=== PATIENT | female | born 1995 | race Caucasian/White ===

== ENCOUNTER 2017-02-06 16:17 | Emergency (ER) | payer SELFPAY ==
--- NOTE | 2017-02-06 16:59 | ER Document Report ---
ED Medical Screen (RME) - General Chief Complaint: Abdominal Pain Stated Complaint: ABDOMINAL PAIN Time Seen by Provider: 02/06/17 16:56 Mode of Arrival: Ambulatory Information source: Patient, Parent TRAVEL OUTSIDE OF THE [place] IN LAST 30 DAYS: No - HPI Patient complains to provider of: abdominal pain Onset: Other - pt. with 2 month h/o abdominal pain and bloating with intermittent vomiting and diarrhea. - Related Data Allergies/Adverse Reactions: gluten Allergy (Verified 02/06/17 16:36) Past Medical History - Social History Chew tobacco use (# tins/day): No Frequency of alcohol use: Occasional Drug Abuse: None Neurological Medical History: Reports: Hx Migraine Endocrine Medical History: Reports: Hx Diabetes Mellitus Type 1 Renal/ Medical History: Denies: Hx Peritoneal Dialysis GI Medical History: Reports: Hx Ulcer Surgical Hx: Negative - Immunizations Hx Diphtheria, Pertussis, Tetanus Vaccination: Yes Physical Exam - Vital signs Vitals: Temp Pulse Resp BP Pulse Ox 98.5 F 81 14 144/102 H 100 02/06/17 16:36 02/06/17 16:36 02/06/17 16:36 02/06/17 16:36 02/06/17 16:36 Course - Vital Signs Vital signs: Temp Pulse Resp BP Pulse Ox 98.5 F 81 14 144/102 H 100 02/06/17 16:36 02/06/17 16:36 02/06/17 16:36 02/06/17 16:36 02/06/17 16:36
[2017-02-06 17:40] LABS: ABSOLUTE BASOPHILS # (AUTO) 0.1 10^3/uL (0.0-0.2); ABSOLUTE EOSINOPHILS # (AUTO) 0.2 10^3/uL (0.0-0.6); ABSOLUTE MONOCYTES (AUTO) 0.6 10^3/uL (0.1-1.4); ABSOLUTE NEUT (AUTO) 7.5 10^3/uL (1.7-8.2); BASOPHILS % (AUTO) 0.5 % (0-2); EOSINOPHILS % (AUTO) 2.4 % (0-6); HEMATOCRIT 46.1 % (36.0-47.0); HGB HCT DIFFERENCE -1.1; LYMPHOCYTES % (AUTO) 19.5 % (13-45); MEAN CORPUSCULAR HEMOGLOBIN 28.2 pg (27.0-33.4); MEAN CORPUSCULAR HGB CONC 32.6 g/dL (32.0-36.0); MEAN CORPUSCULAR VOLUME 87 fl (80-97); RED BLOOD COUNT 5.31 10^6/uL (3.72-5.28); RED CELL DISTRIBUTION WIDTH 12.8 % (11.5-14.0); SEGMENTED NEUTROPHILS % (AUTO) 71.6 % (42-78); WHITE BLOOD COUNT 10.4 10^3/uL (4.0-10.5)
[2017-02-06 17:52] LABS: APPEARANCE,URINE SLIGHTLY-CLOUDY; BILIRUBIN,URINE NEGATIVE (NEGATIVE); GLUCOSE, URINE >=500 mg/dL (NEGATIVE); KETONES,URINE NEGATIVE (NEGATIVE); LEUKOCYTE ESTERASE,URINE TRACE (NEGATIVE); NITRITE,URINE POSITIVE (NEGATIVE); PROTEIN,URINE NEGATIVE (NEGATIVE); URINE SPECIFIC GRAVITY 1.031; UROBILINOGEN,URINE NEGATIVE mg/dL (<2.0)
[2017-02-06 18:00] LABS: ALANINE AMINOTRANSFERASE 19 U/L (9-52); ALBUMIN 4.5 g/dL (3.5-5.0); ALKALINE PHOSPHATASE 70 U/L (38-126); ANION GAP 14 (5-19); ASPARTATE AMINO TRANSFERASE 20 U/L (14-36); BILIRUBIN,DIRECT 0.3 mg/dL (0.0-0.4); BILIRUBIN,TOTAL 0.7 mg/dL (0.2-1.3); BLOOD UREA NITROGEN 10 mg/dL (7-20); CALCIUM 9.3 mg/dL (8.4-10.2); CARBON DIOXIDE 23 mmol/L (22-30); CHLORIDE 98 mmol/L (98-107); CREATININE RESULT 0.69 mg/dL (0.52-1.25); LIPASE 107.6 U/L (23-300)
[2017-02-06 18:08] LABS: GLUCOSE 566 mg/dL (75-110)
[2017-02-06] MEDS ORDERED: INSULIN LISPRO 100 UNIT/ML 3 ML VIAL SUBCUT ONE (19:15)
[2017-02-06] MEDS ORDERED: NORMAL SALINE 1000 ML 1,000 ML IV ONE (19:18)
--- NOTE | 2017-02-06 19:19 | ER Document Report ---
ED General - General Chief Complaint: Abdominal Pain Stated Complaint: ABDOMINAL PAIN Time Seen by Provider: 02/06/17 16:56 Mode of Arrival: Ambulatory Notes: Patient is a 21-year-old female with a mixed type of diabetes both oral hypoglycemic and insulin control although admits that she almost never checks her blood sugar and is noncompliant with her medications due to lack of insurance who presents with 2 months of intermittent diffuse abdominal cramping. Denies any significant pain at time of my assessment. Nothing improves or worsens the pain. She has not seen a primary care doctor regarding this concern. She denies any associated vomiting or diarrhea. States that the pain is often worse around her menstrual cycle or when she is feeling depressed. TRAVEL OUTSIDE OF THE [place] IN LAST 30 DAYS: No - Related Data Allergies/Adverse Reactions: gluten Allergy (Verified 02/06/17 16:36) Past Medical History - General Information source: Patient, Parent - Social History Smoking Status: Current Every Day Smoker Chew tobacco use (# tins/day): No Frequency of alcohol use: Occasional Drug Abuse: None Lives with: Parents Family History: Reviewed & Not Pertinent Patient has suicidal ideation: No Patient has homicidal ideation: No Neurological Medical History: Reports: Hx Migraine Endocrine Medical History: Reports: Hx Diabetes Mellitus Type 1 Renal/ Medical History: Denies: Hx Peritoneal Dialysis GI Medical History: Reports: Hx Ulcer Surgical Hx: Negative - Immunizations Hx Diphtheria, Pertussis, Tetanus Vaccination: Yes Review of Systems - Review of Systems Notes: Constitutional: Negative for fever. HENT: Negative for sore throat. Eyes: Negative for visual changes. Cardiovascular: Negative for chest pain. Respiratory: Negative for shortness of breath. Gastrointestinal: Positive for abdominal pain Genitourinary: Negative for dysuria. Musculoskeletal: Negative for back pain. Skin: Negative for rash. Neurological: Negative for headaches, weakness or numbness. 10 point ROS negative except as marked above and in HPI. Physical Exam - Vital signs Vitals: Temp Pulse Resp BP Pulse Ox 98.5 F 81 14 144/102 H 100 02/06/17 16:36 02/06/17 16:36 02/06/17 16:36 02/06/17 16:36 02/06/17 16:36 Interpretation: Normal Notes: PHYSICAL EXAMINATION: GENERAL: Well-appearing, well-nourished and in no acute distress. HEAD: Atraumatic, normocephalic. EYES: Pupils equal round and reactive to light, extraocular movements intact, sclera anicteric, conjunctiva are normal. ENT: nares patent, oropharynx clear without exudates. Moist mucous membranes. NECK: Normal range of motion, supple without lymphadenopathy LUNGS: Breath sounds clear to auscultation bilaterally and equal. No wheezes rales or rhonchi. HEART: Regular rate and rhythm without murmurs ABDOMEN: Soft, nontender, normoactive bowel sounds. No guarding, no rebound. No masses appreciated. EXTREMITIES: Normal range of motion, no pitting or edema. No cyanosis. NEUROLOGICAL: No focal neurological deficits. Moves all extremities spontaneously and on command. PSYCH: Normal mood, normal affect. SKIN: Warm, Dry, normal turgor, no rashes or lesions noted. Course - Re-evaluation Re-evalutation: 02/06/17 19:17 Patient presents with 2 months of intermittent, chronic diffuse abdominal pain with no pain on exam at this time. Abdominal exam is benign without any focal tenderness. Vitals are normal at the time of arrival. Laboratories are unremarkable without evidence of cystitis, , or leukocytosis. Patient is overall very well in appearance. Based on clinical history and examination I do not suspect an acute appendicitis, tubo-ovarian abscess, related pathology, pelvic inflammatory disease, mesenteric ischemia, or pyelonephritis. Patient severe hypoglycemia does suggest a component of possible gastroparesis to the etiology of her intermittent abdominal pain especially given that her pain is often related to eating a large meal and is described as a sensation of diffuse bloating and nausea. I do not believe any imaging is indicated at this time given the absence of any focal abdominal tenderness or suspicion of an acute intra-abdominal pathology. Patient's hypoglycemia does not demonstrate any evidence of DKA or HHS. She is awake and talking, appropriate. The resource nurse will contact the patient on Thursday to assist with her getting insulin as an outpatient as she does struggle with this due to lack of insurance. Patient's blood sugar has been treated here in the emergency department with IV fluids and insulin. At this time will discharge with return precautions and follow-up recommendations. Verbal discharge instructions given a the bedside and opportunity for questions given. Medication warnings reviewed. Patient is in agreement with this plan and has verbalized understanding of return precautions and the need for primary care follow-up in the next 24-72 hours. - Vital Signs Vital signs: Temp Pulse Resp BP Pulse Ox 97.4 F 67 16 136/88 H 99 02/06/17 20:31 02/06/17 20:31 02/06/17 20:31 02/06/17 20:31 02/06/17 20:31 - Laboratory Result Diagrams: 02/06/17 17:20 02/06/17 17:20 Laboratory results interpreted by me: 02/06/17 02/06/17 02/06/17 17:02 17:20 17:20 RBC 5.31 H Sodium 135.0 L Glucose 566 H* POC Glucose Urine Glucose (UA) >=500 H Urine Blood LARGE H Urine Nitrite POSITIVE H Ur Leukocyte Esterase TRACE H 02/06/17 20:15 RBC Sodium Glucose POC Glucose 323 H Urine Glucose (UA) Urine Blood Urine Nitrite Ur Leukocyte Esterase Discharge - Discharge Clinical Impression: Hyperglycemia due to type 1 diabetes mellitus, Chronic abdominal pain Condition: Good Disposition: HOME, SELF-CARE Additional Instructions: You need to followup urgently with your primary care doctor as your blood sugars were dangerously high today. You did not have any evidence of a dangerous condition associated with these blood sugars at this time. However, it is very important that you get your blood sugars under control. Please take all of your medications exactly as directed. You should avoid foods that are high in carbohydrates and sugary foods. Please return to emergency department immediately if you develop weakness, persistent vomiting, confusion, or any other symptoms that are concerning to you. Referrals: GEORGE YODER DO [Primary Care Provider] - Follow up as needed
[2017-02-06 20:31] VITALS: BP 136/88
== END 2017-02-06 20:31 | disposition home or self-care (01) ==
LOC: ER 16:17
DX: E10.65 Type 1 diabetes mellitus with hyperglycemia (principal); G89.29 Other chronic pain; R10.9 Unspecified abdominal pain; F17.200 Nicotine dependence, unspecified, uncomplicated; Z79.4 Long term (current) use of insulin
CPT/HCPCS: 99284; 96360; 36415; 82962; 83690; 85025; 81025; 80053; 81001; J1815

== ENCOUNTER → 2017-02-23 | Outpatient (CLI) | payer OTHER ==
[2017-02-23 12:15] LABS: ABSOLUTE EOSINOPHILS # (AUTO) 0.2 10^3/uL (0.0-0.6); ABSOLUTE LYMPHOCYTES (AUTO) 1.5 10^3/uL (0.5-4.7); ABSOLUTE MONOCYTES (AUTO) 0.6 10^3/uL (0.1-1.4); ABSOLUTE NEUT (AUTO) 5.7 10^3/uL (1.7-8.2); BASOPHILS % (AUTO) 0.5 % (0-2); EOSINOPHILS % (AUTO) 2.7 % (0-6); HEMATOCRIT 39.2 % (36.0-47.0); HEMOGLOBIN 13.6 g/dL (12.0-15.5); HGB HCT DIFFERENCE 1.6; LYMPHOCYTES % (AUTO) 18.5 % (13-45); MEAN CORPUSCULAR HEMOGLOBIN 29.4 pg (27.0-33.4); MEAN CORPUSCULAR HGB CONC 34.7 g/dL (32.0-36.0); MEAN CORPUSCULAR VOLUME 85 fl (80-97); MONOCYTES % (AUTO) 7.3 % (3-13); RED BLOOD COUNT 4.61 10^6/uL (3.72-5.28); RED CELL DISTRIBUTION WIDTH 12.6 % (11.5-14.0)
[2017-02-23 12:35] LABS: ALANINE AMINOTRANSFERASE 18 U/L (9-52); ALBUMIN 4.1 g/dL (3.5-5.0); ALKALINE PHOSPHATASE 61 U/L (38-126); ANION GAP 11 (5-19); ASPARTATE AMINO TRANSFERASE 13 U/L (14-36); BILIRUBIN,DIRECT 0.3 mg/dL (0.0-0.4); BILIRUBIN,TOTAL 0.7 mg/dL (0.2-1.3); BLOOD UREA NITROGEN 10 mg/dL (7-20); CALCIUM 9.5 mg/dL (8.4-10.2); CARBON DIOXIDE 27 mmol/L (22-30); CHLORIDE 102 mmol/L (98-107); CHOLESTEROL 176.48 mg/dL (0-200); CREATININE RESULT 0.61 mg/dL (0.52-1.25); Direct HDL 43 mg/dL (>40); GLUCOSE 203 mg/dL (75-110); POTASSIUM 4.8 mmol/L (3.6-5.0); SODIUM 139.8 mmol/L (137-145); TOTAL PROTEIN 7.2 g/dL (6.3-8.2); TRIGLYCERIDES 95 mg/dL (<150)
[2017-02-23 12:46] LABS: DIRECT LDL 121 mg/dL (<100)
== END ==
LOC: OD 11:25
DX: Z00.00 Encounter for general adult medical examination without abnormal findings (principal); E10.8 Type 1 diabetes mellitus with unspecified complications
CPT/HCPCS: 36415; 80053; 80061; 83036; 84443; 85025

== ENCOUNTER 2017-09-17 08:23 | Emergency (ER) | payer SELFPAY ==
[2017-09-17] MEDS ORDERED: ONDANSETRON HCL INJ/PF 4 MG/2 ML SDV IV ONE (09:07)
[2017-09-17] MEDS ORDERED: RINGERS SOLUTION,LACTATED 1,000 ML IV ONE (09:08)
--- NOTE | 2017-09-17 09:08 | ER Document Report ---
ED GI/ - General Mode of Arrival: Ambulatory Information source: Patient TRAVEL OUTSIDE OF THE [place] IN LAST 30 DAYS: No - HPI Patient complains to provider of: Abdominal pain, Flank pain Onset: Other - few weeks ago Location: Right flank, Other - see notes above Associated symptoms: Other - see notes above Exacerbated by: Food <CHANG MARES - Last Filed: 09/17/17 15:07> <JARRED ROBLES - Last Filed: 09/17/17 15:16> - General Chief Complaint: Flank Pain Stated Complaint: ABDOMINAL PAIN Time Seen by Provider: 09/17/17 08:55 Notes: 22 year old female with history of a compromised kidney (double ureter causing reflux), bladder infections, and diabetes presents to the ED complaining of right sided back pain and diffuse abdominal pain that started a few weeks ago and acutely worsened last night. Patient reports that eating 'heavier' foods makes the pain worse and was only able to eat broccoli last night. Patient has been vomiting since 0530 this morning and additionally complains of cold sweats , and some 'muscle' pain with urination, but denies burning with urination or hematuria. Patient denies cholecystectomy or appendectomy. (CHANG MARES) - Related Data Allergies/Adverse Reactions: gluten Allergy (Verified 02/06/17 16:36) amoxicillin Adverse Reaction (Verified 09/17/17 08:26) Sulfa (Sulfonamide Antibiotics) Adverse Reaction (Verified 09/17/17 08:26) Past Medical History - General Information source: Patient - Social History Smoking Status: Never Smoker Chew tobacco use (# tins/day): No Frequency of alcohol use: Occasional Drug Abuse: None Family History: Reviewed & Not Pertinent Patient has suicidal ideation: No Patient has homicidal ideation: No Neurological Medical History: Reports: Hx Migraine Endocrine Medical History: Reports: Hx 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 Was on metformin as a child, but is no longer. Renal/ Medical History: Reports: Other - Double ureter causing reflux. Patient unsure of which kidney. Bladder infx.. Denies: Hx Peritoneal Dialysis GI Medical History: Reports: Hx Ulcer Past Surgical History: Reports: Hx Kidney (Renal Surgery) - 2 months old. Denies: Hx Appendectomy, Hx Cholecystectomy - Immunizations Hx Diphtheria, Pertussis, Tetanus Vaccination: Yes <CHANG MARES - Last Filed: 09/17/17 15:07> Review of Systems - Review of Systems Constitutional: See HPI, Chills, Diaphoresis EENT: No symptoms reported Cardiovascular: No symptoms reported Respiratory: No symptoms reported Gastrointestinal: See HPI, Abdominal pain, Vomiting Genitourinary: See HPI, Flank pain - right. denies: Burning, Hematuria Female Genitourinary: No symptoms reported Musculoskeletal: No symptoms reported Skin: No symptoms reported Hematologic/Lymphatic: No symptoms reported Neurological/Psychological: No symptoms reported -: Yes All other systems reviewed and negative <CHANG MARES - Last Filed: 09/17/17 15:07> Physical Exam <CHANG MARES - Last Filed: 09/17/17 15:07> <JARRED ROBLES - Last Filed: 09/17/17 15:16> - Vital signs Vitals: Temp Pulse Resp BP Pulse Ox 98.6 F 101 H 12 126/82 H 98 09/17/17 08:31 09/17/17 08:31 09/17/17 08:31 09/17/17 08:31 09/17/17 08:31 - Notes Notes: GENERAL: Alert, interacts well. No acute distress. HEAD: Normocephalic, atraumatic. EYES: Pupils equal, round, and reactive to light. Extraocular movements intact. ENT: Oral mucosa moist, tongue midline. NECK: Full range of motion. Supple. Trachea midline. LUNGS: Clear to auscultation bilaterally, no wheezes, rales, or rhonchi. No respiratory distress. HEART: Regular rate and rhythm. No murmurs, gallops, or rubs. ABDOMEN: Soft. Diffuse tenderness to palpation. Non-distended. Bowel sounds present in all 4 quadrants. BACK: Right CVA tenderness to percussion. EXTREMITIES: Moves all 4 extremities spontaneously. No edema, radial and dorsalis pedis pulses 2/4 bilaterally. No cyanosis. NEUROLOGICAL: Alert and oriented x3. Normal speech. PSYCH: Normal affect, normal mood. SKIN: Warm, dry, normal turgor. No rashes or lesions noted. (CHANG MARES) Course - Laboratory Result Diagrams: 09/17/17 08:50 09/17/17 08:50 <CHANG MARES - Last Filed: 09/17/17 15:07> - Laboratory Result Diagrams: 09/17/17 08:50 09/17/17 08:50 <JARRED ROBLES - Last Filed: 09/17/17 15:16> - Re-evaluation Re-evalutation: 09/17/17 11:17 CBC shows leukocytosis at 17.4, chemistries unremarkable, hCG negative, urinalysis shows large leukocyte esterase, 41 RBCs, 1+ bacteria. This is been sent for culture, I am concerned for pyelonephritis given the marked leukocytosis. Patient is having 2 different imaging studies, one is the right upper quadrant ultrasound given how long her pain has been going on and the fact that he gets worse with food, the other one will be a CT renal protocol to make sure there is not an obstructing stone given theHematuria. Patient initially declined pain medication, will now be given Toradol and Rocephin for her UTI. 09/17/17 12:34 CT scan shows no evidence of urinary stones, hydronephrosis or hydroureter, there is an abnormal upper pole of the right kidney with a 3 cm hypodense area along the upper pole and adjacent prominent blood vessels, question tumor versus anatomic developmental variant. Post contrasted CT exam with immediate post IV and delayed post IV contrast imaging of the kidneys is recommended. Abdominal ultrasound shows similar finding. Gallbladder is normal. Discussed these findings with the patient and the importance of outpatient follow-up for the abnormality on the CAT scan which could represent cancer. Patient will be discharged to home with oral antibiotics. Urine has been sent for culture. 09/17/17 15:16 (JARRED ROBLES) - Vital Signs Vital signs: Temp Pulse Resp BP Pulse Ox 98.7 F 87 18 108/66 100 09/17/17 12:47 09/17/17 12:47 09/17/17 12:47 09/17/17 12:47 09/17/17 12:47 - Laboratory Laboratory results interpreted by me: 09/17/17 09/17/17 09/17/17 08:45 08:50 08:50 WBC 17.4 H Seg Neutrophils % 87.5 H Lymphocytes % 6.3 L Absolute Neutrophils 15.2 H Glucose 176 H Urine Protein 100 H Urine Glucose (UA) 150 H Ur Leukocyte Esterase LARGE H Discharge <CHANG MARES - Last Filed: 09/17/17 15:07> <JARRED ROBLES - Last Filed: 09/17/17 15:16> - Discharge Clinical Impression: Pyelonephritis Condition: Stable Disposition: HOME, SELF-CARE Additional Instructions: Pyelonephritis Your evaluation shows evidence of pyelonephritis. This is an infection in the kidney. Typical symptoms are fever, pain in the flank, pain on urination, and frequent urination. Many cases of pyelonephritis can be treated at home. Hospital care may be necessary for patients who are very ill, or elderly or . Pyelonephritis is treated with antibiotics. Be sure to take all the medication as prescribed. Drink plenty of liquids (about three quarts per day) . You may take acetaminophen for fever. You should feel significantly improved within two days. You should have a recheck of your urine in about one week to insure that the infection is gone. Return for a re-examination if your symptoms worsen in any way -- such as high fever, shaking chills, severe weakness or dizziness, severe pain, or inability to pass your urine. Prescriptions: Hydrocodone/Acetaminophen [[place] 5-325 mg Tablet] 1 tab PO Q6HP PRN #10 tablet PRN Reason: Doxycycline Hyclate 100 mg PO BID #14 capsule Forms: Return to Work Scribe Attestation: 09/17/17 15:16 I personally performed the services described in the documentation, reviewed and edited the documentation which was dictated to the scribe in my presence, and it accurately records my words and actions. (JARRED ROBLES) Scribe Documentation - Scribe Written by Linda:: Linda Decker, 09/17/2017 0938 acting as scribe for :: Charis <CHANG MARES - Last Filed: 09/17/17 15:07>
[2017-09-17 09:21] LABS: ABSOLUTE EOSINOPHILS # (AUTO) 0.1 10^3/uL (0.0-0.6); ABSOLUTE LYMPHOCYTES (AUTO) 1.1 10^3/uL (0.5-4.7); ABSOLUTE NEUT (AUTO) 15.2 10^3/uL (1.7-8.2); BASOPHILS % (AUTO) 0.2 % (0-2); EOSINOPHILS % (AUTO) 0.5 % (0-6); HEMATOCRIT 41.1 % (36.0-47.0); HEMOGLOBIN 14.3 g/dL (12.0-15.5); LYMPHOCYTES % (AUTO) 6.3 % (13-45); MEAN CORPUSCULAR HEMOGLOBIN 29.1 pg (27.0-33.4); MEAN CORPUSCULAR HGB CONC 34.9 g/dL (32.0-36.0); MEAN CORPUSCULAR VOLUME 83 fl (80-97); MONOCYTES % (AUTO) 5.5 % (3-13); PLATELET COUNT 315 10^3/uL (150-450); RED BLOOD COUNT 4.93 10^6/uL (3.72-5.28); RED CELL DISTRIBUTION WIDTH 12.5 % (11.5-14.0); SEGMENTED NEUTROPHILS % (AUTO) 87.5 % (42-78); TOTAL CELLS COUNTED % (AUTO) 100 %; WHITE BLOOD COUNT 17.4 10^3/uL (4.0-10.5)
[2017-09-17 09:28] LABS: ALANINE AMINOTRANSFERASE 15 U/L (9-52); ALBUMIN 4.5 g/dL (3.5-5.0); ALKALINE PHOSPHATASE 67 U/L (38-126); ANION GAP 12 (5-19); ASPARTATE AMINO TRANSFERASE 32 U/L (14-36); BILIRUBIN,DIRECT 0.3 mg/dL (0.0-0.4); BILIRUBIN,TOTAL 0.8 mg/dL (0.2-1.3); BLOOD UREA NITROGEN 15 mg/dL (7-20); CALCIUM 9.2 mg/dL (8.4-10.2); CARBON DIOXIDE 22 mmol/L (22-30); CHLORIDE 105 mmol/L (98-107); GLUCOSE 176 mg/dL (75-110); POTASSIUM 4.1 mmol/L (3.6-5.0); SODIUM 139.4 mmol/L (137-145); TOTAL PROTEIN 8.1 g/dL (6.3-8.2)
[2017-09-17 10:01] LABS: AMORPHOUS SEDIMENT,URINE TRACE /HPF; APPEARANCE,URINE TURBID; BILIRUBIN,URINE NEGATIVE (NEGATIVE); GLUCOSE, URINE 150 mg/dL (NEGATIVE); KETONES,URINE NEGATIVE (NEGATIVE); LEUKOCYTE ESTERASE,URINE LARGE (NEGATIVE); NITRITE,URINE NEGATIVE (NEGATIVE); PROTEIN,URINE 100 mg/dL (NEGATIVE); URINE SPECIFIC GRAVITY 1.021; UROBILINOGEN,URINE NEGATIVE mg/dL (<2.0)
[2017-09-17 10:02] LABS: COLOR,URINE YELLOW
[2017-09-17] MEDS ORDERED: CEFTRIAXONE 1 GM/D5W RTU 1 GM/50 ML RTUPB IV ONE (10:42)
[2017-09-17] MEDS ORDERED: KETOROLAC TROMETHAMINE 60 MG/2 ML SDV IV ONE (11:16)
[2017-09-17] MEDS ORDERED: CEFTRIAXONE SODIUM 1,000 MG in NORMAL SALINE 100 ML IV ONE (11:30)
--- NOTE | 2017-09-17 11:33 | RADIOLOGY REPORT (SQ) ---
EXAM DESCRIPTION: CT LTD RENAL STONE PROTOCOL ON COMPLETED DATE/TIME: 09/17/2017 11:08 am REASON FOR STUDY: right flank pain, hematuria, UTI COMPARISON: Abdominal ultrasound same date TECHNIQUE: CT scan of the abdomen and pelvis performed without intravenous or oral contrast. Images reviewed with lung, soft tissue, and bone windows. Reconstructed coronal and sagittal MPR images revi ewed. All images stored on PACS. All CT scanners at this facility use dose modulation, iterative reconstruction, and/or weight based d osing when appropriate to reduce radiation dose to as low as reasonably achievable (ALARA). [facility]: Dose Right [facility]: CareDose [facility]: Dose Right [facility]: Teradose 4D [facility]: Picplum RADIATION DOSE: CT Rad equipment meets quality standard of care and radiation dose reduction techniq ues were employed. CTDIvol: 5.3 mGy. DLP: 284 mGy-cm.mGy. LIMITATIONS: None. FINDINGS: LOWER CHEST: No significant findings. No nodules or infiltrates. NON-CONTRASTED LIVER, SPLEEN, ADRENALS: Evaluation limited by lack of IV contrast. No identified sign ificant masses. PANCREAS: No masses. No peripancreatic inflammatory changes. GALLBLADDER: No identified stones by CT criteria. No inflammatory changes to suggest cholecystitis. RIGHT KIDNEY AND URETER: The upper pole right kidney is abnormal, there is a complex cystic and solid lesion in the upper pole left kidney measuring about 2.5 to 3 cm in diameter, with adjacent prominen t blood vessels, this is best shown on sagittal image 33, coronal images 30-36, and axial images 28 a nd 29. At ultrasound, this is also identified with prominence the adjacent blood vessels. Assessmen t limited by lack of IV contrast. No significant calcifications. No hydronephrosis or hydroureter . LEFT KIDNEY AND URETER: No suspicious masses. Assessment limited by lack of IV contrast. No signifi cant calcifications. No hydronephrosis or hydroureter. AORTA AND RETROPERITONEUM: No aneurysm. No retroperitoneal masses or adenopathy. BOWEL AND PERITONEAL CAVITY: No obvious masses or inflammatory changes. No free fluid. APPENDIX: Normal. PELVIS, BLADDER, AND ABDOMINAL WALL:No abnormal masses. No free fluid. Bladder normal. BONES: No significant findings. OTHER: No other significant finding. IMPRESSION: No CT evidence of urinary stones, hydronephrosis or hydroureter. Abnormal upper pole right kidney, with a 3 cm hypodense area along the upper pole cortex, and adjacen t prominent blood vessels. Question tumor versus anatomic developmental variant. Post contrasted CT exam with immediate post IV and delayed post IV contrast imaging of the kidneys is recommended COMMENT: Quality ID # [id number]: Final reports with documentation of one or more dose reduction techniques (e.g., Automated exposure control, adjustment of the mA and/or kV according to patient size, use of iterative reconstruction technique) TECHNICAL DOCUMENTATION: JOB ID: [id number] [employer]- All Rights Reserved
--- NOTE | 2017-09-17 11:37 | RADIOLOGY REPORT (SQ) ---
EXAM DESCRIPTION: U/S ABDOMEN LIMITED W/O DOP COMPLETED DATE/TIME: 09/17/2017 11:15 am REASON FOR STUDY: RUQ abd pain, r/o appy COMPARISON: CT abdomen pelvis without contrast same date TECHNIQUE: Dynamic and static grayscale images acquired of the abdomen and recorded on PACS. Additio nal selected color Doppler and spectral images recorded. LIMITATIONS: None. FINDINGS: PANCREAS: Midline pancreas unremarkable LIVER: No masses. Echotexture normal. LIVER VASCULATURE: Normal directional flow of the main portal vein and hepatic veins. GALLBLADDER: No stones. Normal wall thickness. No pericholecystic fluid. ULTRASOUND-DETECTED NEWMAN'S SIGN: Negative. INTRAHEPATIC DUCTS AND COMMON DUCT: CBD and intrahepatic ducts normal caliber. No filling defects. INFERIOR VENA CAVA: Normal flow. AORTA: No aneurysm. RIGHT KIDNEY: In the upper pole right kidney, a hypoechoic cystic area is present about 3 cm in diam eter with adjacent prominent blood vessels. 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 Perhaps this represents a remnant of a an upper p ole duplicated collecting system with accessory renal artery and vein. Malignant masses considered m uch less likely. Follow-up CT scanning with IV contrast to include immediate postcontrast and delaye d post-contrast imaging recommended PERITONEAL AND RIGHT PLEURAL SPACE: No ascites or effusions. OTHER: Right lower quadrant was examined. Appendix not identified. IMPRESSION: No gallstones, gallbladder wall thickening or pericholecystic fluid. Incidental finding of an abnormal hypoechoic area upper pole right kidney with feeding and draining v essels, could represent remnant of a duplicated collecting system. Tumor is considered less likely b ut possible. Post contrast CT imaging recommended. TECHNICAL DOCUMENTATION: JOB ID: [id number] [employer]- All Rights Reserved
[2017-09-17 12:53] VITALS: BP 108/66
== END 2017-09-17 12:53 | disposition home or self-care (01) ==
LOC: ER 08:23
DX: N12 Tubulo-interstitial nephritis, not specified as acute or chronic (principal); R10.9 Unspecified abdominal pain; E11.9 Type 2 diabetes mellitus without complications; Z88.0 Allergy status to penicillin; Z88.2 Allergy status to sulfonamides
CPT/HCPCS: 99284; 96375; 96365; 96367; 36415; 87086; 84703; 85025; 87088; 80053; 81001; 87186; 76705; 76380; J1885; J0696; J2405; J7120

== ENCOUNTER 2020-02-14 15:18 | Emergency (ER) | payer SELFPAY ==
--- NOTE | 2020-02-14 15:38 | ER Document Report ---
ED Medical Screen (RME) - General Chief Complaint: Pelvic Pain Stated Complaint: RIGHT PELVIC PAIN Time Seen by Provider: 02/14/20 15:31 Mode of Arrival: Ambulatory Information source: Patient Notes: Patient presents complaining of right lower pelvic pain. Patient states she initially had right flank pain that radiated around to the right lower quadrant. Patient states now she only has abdominal tenderness. Patient reports nausea. Patient denies any vomiting or diarrhea. Patient does complain of dysuria and vaginal discharge. I have greeted and performed a rapid initial assessment of this patient. A comprehensive ED assessment and evaluation of the patient, analysis of test results and completion of the medical decision making process will be conducted by additional ED providers. TRAVEL OUTSIDE OF THE [place] 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 Was on metformin as a child, but is no longer. Renal/ Medical History: Denies: Hx Peritoneal Dialysis GI Medical History: Reports: Hx Ulcer Past Surgical History: Reports: Hx Kidney (Renal Surgery) - 2 months old. Denies: Hx Appendectomy, Hx Cholecystectomy - Immunizations Hx Diphtheria, Pertussis, Tetanus Vaccination: Yes Physical Exam - Vital signs Vitals: Temp Pulse Resp BP Pulse Ox 98.5 F 79 16 151/87 H 100 02/14/20 15:23 02/14/20 15:23 02/14/20 15:23 02/14/20 15:23 02/14/20 15:23 - General General appearance: Appears well, Alert Notes: Right lower pelvic tenderness, exam limited as patient is sitting in chair Course - Vital Signs Vital signs: Temp Pulse Resp BP Pulse Ox 98.5 F 79 16 151/87 H 100 02/14/20 15:23 02/14/20 15:23 02/14/20 15:23 02/14/20 15:23 02/14/20 15:23
[2020-02-14 16:03] LABS: ABSOLUTE EOSINOPHILS # (AUTO) 0.1 10^3/uL (0.0-0.6); ABSOLUTE LYMPHOCYTES (AUTO) 1.3 10^3/uL (0.5-4.7); ABSOLUTE MONOCYTES (AUTO) 0.6 10^3/uL (0.1-1.4); ABSOLUTE NEUT (AUTO) 10.5 10^3/uL (1.7-8.2); BASOPHILS % (AUTO) 0.3 % (0-2); EOSINOPHILS % (AUTO) 0.9 % (0-6); HEMATOCRIT 42.2 % (36.0-47.0); HEMOGLOBIN 14.3 g/dL (12.0-15.5); LYMPHOCYTES % (AUTO) 10.2 % (13-45); MEAN CORPUSCULAR HEMOGLOBIN 29.9 pg (27.0-33.4); MEAN CORPUSCULAR HGB CONC 33.8 g/dL (32.0-36.0); MEAN CORPUSCULAR VOLUME 89 fl (80-97); PLATELET COUNT 299 10^3/uL (150-450); RED BLOOD COUNT 4.77 10^6/uL (3.72-5.28); RED CELL DISTRIBUTION WIDTH 11.9 % (11.5-14.0); SEGMENTED NEUTROPHILS % (AUTO) 83.6 % (42-78); TOTAL CELLS COUNTED % (AUTO) 100 %; WHITE BLOOD COUNT 12.5 10^3/uL (4.0-10.5)
[2020-02-14 16:14] LABS: APPEARANCE,URINE SLIGHTLY-CLOUDY; BILIRUBIN,URINE NEGATIVE (NEGATIVE); COLOR,URINE STRAW; GLUCOSE, URINE >=500 mg/dL (NEGATIVE); KETONES,URINE NEGATIVE (NEGATIVE); LEUKOCYTE ESTERASE,URINE LARGE (NEGATIVE); NITRITE,URINE NEGATIVE (NEGATIVE); PROTEIN,URINE NEGATIVE (NEGATIVE); UROBILINOGEN,URINE NEGATIVE mg/dL (<2.0)
[2020-02-14 16:21] LABS: ALBUMIN 4.2 g/dL (3.5-5.0); ALKALINE PHOSPHATASE 62 U/L (38-126); ANION GAP 8 (5-19); ASPARTATE AMINO TRANSFERASE 15 U/L (14-36); BILIRUBIN,TOTAL 0.5 mg/dL (0.2-1.3); BLOOD UREA NITROGEN 16 mg/dL (7-20); CARBON DIOXIDE 29 mmol/L (22-30); CHLORIDE 95 mmol/L (98-107); POTASSIUM 4.2 mmol/L (3.6-5.0); TOTAL PROTEIN 7.1 g/dL (6.3-8.2)
[2020-02-14 16:37] LABS: GLUCOSE 586 mg/dL (75-110)
--- NOTE | 2020-02-14 17:07 | RADIOLOGY REPORT (SQ) ---
EXAM DESCRIPTION: U/S NON OB PEL TV W/DOPPLER IMAGES COMPLETED DATE/TIME: 02/14/2020 4:45 pm REASON FOR STUDY: RLQ pain LMP 02/03/2020 COMPARISON: None. TECHNIQUE: Dynamic and static grayscale images acquired of the pelvis via transvaginal approach and recorded on PACS. Additional selected color Doppler and spectral images recorded. LIMITATIONS: None. FINDINGS: UTERUS: Contour normal. No mass. ENDOMETRIAL STRIPE: No focal or generalized thickening. No masses. CERVIX: 2.2 cm. RIGHT OVARY AND DOPPLER: Normal size. No worrisome masses. There is an 18 mm cyst. Normal arterial vascular flow without evidence for torsion. LEFT OVARY AND DOPPLER: Normal size. No worrisome masses. Normal arterial vascular flow without evide nce for torsion. Not well seen because of bowel gas. FREE FLUID: None noted. OTHER: No other significant finding. MEASUREMENTS: UTERUS: 6.4 x 3.9 x 3.1 cm. ENDOMETRIAL STRIPE: 6 mm. RIGHT OVARY: 2.4 x 3.2 x 2.5 cm. LEFT OVARY: 1.4 x 1.2 x 1.1 cm. IMPRESSION: NORMAL TRANSVAGINAL PELVIC ULTRASOUND. TECHNICAL DOCUMENTATION: JOB ID: [id number] [employer]- All Rights Reserved Rev-12/11 Reading location - IP/workstation name: [email or web address]
[2020-02-14] MEDS ORDERED: CEFTRIAXONE 1 GM/D5W RTU 1 GM/50 ML RTUPB IV ONE (17:23)
[2020-02-14] MEDS ORDERED: INSULIN REG, HUMAN 100 UNIT/ML 3 ML VIAL (PYX) IV ONE (17:24)
[2020-02-14] MEDS ORDERED: NORMAL SALINE 1000 ML 1,000 ML IV ONE (17:24)
[2020-02-14 17:39] LABS: CHLAM PCR NOT DETECTED (NOT DETECT)
--- NOTE | 2020-02-14 17:50 | ER Document Report ---
Entered by KHUSHBOO HALE SCRIBE 02/14/20 1723 Acting as scribe for:KALYAN REYES DO ED GI/ - General Chief Complaint: Lower Abdominal Pain Stated Complaint: RIGHT PELVIC PAIN Time Seen by Provider: 02/14/20 15:31 Mode of Arrival: Ambulatory Information source: Patient Notes: This 24 year old female patient presents to the ED today with complaints of bilateral pelvic pain, right worse than left since her D&C x2 years ago, worse this morning. Patient describes the pain as excruciating with associated nausea without emesis. She states that she took Tylenol this morning without relief. She also reports dysuria and vaginal discharge, but denies diarrhea, burning with urination, or hematuria. LMP was 02/03/2020. Patient reports a history of diabetes and states that she is on a sliding scale of Humalog and takes Lantus. She mentions that she has not been able to check her BGL because she is out of testing strips. She does not have a regular doctor, but goes to the [facility]. TRAVEL OUTSIDE OF THE [place] IN LAST 30 DAYS: No - Related Data Allergies/Adverse Reactions: gluten Allergy (Verified 02/14/20 15:34) amoxicillin Adverse Reaction (Verified 02/14/20 15:34) Sulfa (Sulfonamide Antibiotics) Adverse Reaction (Verified 02/14/20 15:34) Past Medical History - General Information source: Patient - Social History Smoking Status: Never Smoker Cigarette use (# per day): No Chew tobacco use (# tins/day): No Smoking Education Provided: No Frequency of alcohol use: Occasional Drug Abuse: Marijuana Family History: Reviewed & Not Pertinent Patient has suicidal ideation: No Patient has homicidal ideation: No Neurological Medical History: Reports: Hx Migraine Endocrine Medical History: Reports: Hx Diabetes Mellitus Type 1, Hx 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 Was on metformin as a child, but is no longer. GI Medical History: Reports: Hx Ulcer Past Surgical History: Reports: Hx Kidney (Renal Surgery) - 2 months old - Immunizations Hx Diphtheria, Pertussis, Tetanus Vaccination: Yes Review of Systems - Review of Systems Constitutional: No symptoms reported EENT: No symptoms reported Cardiovascular: No symptoms reported Respiratory: No symptoms reported Gastrointestinal: See HPI, Abdominal pain, Nausea. denies: Diarrhea, Vomiting Genitourinary: See HPI, Dysuria. denies: Burning Female Genitourinary: See HPI, Last menstrual period - 02/03/2020, Vaginal discharge Musculoskeletal: No symptoms reported Skin: No symptoms reported Hematologic/Lymphatic: No symptoms reported Neurological/Psychological: No symptoms reported -: Yes All other systems reviewed and negative Physical Exam - Vital signs Vitals: Temp Pulse Resp BP Pulse Ox 98.5 F 79 16 151/87 H 100 02/14/20 15:23 02/14/20 15:23 02/14/20 15:23 02/14/20 15:23 02/14/20 15:23 - General General appearance: Appears well, Alert In distress: None - HEENT Head: Normocephalic, Atraumatic Eyes: Normal Pupils: PERRL - Respiratory Respiratory status: No respiratory distress Chest status: Nontender Breath sounds: Normal Chest palpation: Normal - Cardiovascular Rhythm: Regular Heart sounds: Normal auscultation Murmur: No Friction rub: No Gallop: None auscultated - Abdominal Inspection: Normal Distension: No distension Bowel sounds: Normal Tenderness: Tender - Mild suprapubic tenderness with palpation. No: McBurney's point Organomegaly: No organomegaly - Back Back: Normal, Nontender - Extremities General upper extremity: Normal inspection General lower extremity: Normal inspection. No: Edema - Neurological Neuro grossly intact: Yes Orientation: AAOx4 [place]ila Coma Scale Eye Opening: Spontaneous [place] Coma Scale Verbal: Oriented [place] Coma Scale Motor: Obeys Commands [place] Coma Scale Total: 15 - Psychological Associated symptoms: Normal affect, Normal mood - Skin Skin Temperature: Warm Skin Moisture: Dry Skin Color: Normal Course - Vital Signs Vital signs: Temp Pulse Resp BP Pulse Ox 98.5 F 79 22 H 122/77 100 02/14/20 15:23 02/14/20 15:23 02/14/20 20:01 02/14/20 20:01 02/14/20 20:01 - Laboratory Result Diagrams: 02/14/20 15:49 02/14/20 15:49 Laboratory results interpreted by me: 02/14/20 02/14/20 02/14/20 15:49 15:49 15:49 WBC 12.5 H Lymph % (Auto) 10.2 L Absolute Neuts (auto) 10.5 H Seg Neutrophils % 83.6 H Sodium 131.5 L Chloride 95 L Glucose 586 H* POC Glucose Urine Glucose (UA) >=500 H Urine Blood SMALL H Ur Leukocyte Esterase LARGE H 02/14/20 18:22 WBC Lymph % (Auto) Absolute Neuts (auto) Seg Neutrophils % Sodium Chloride Glucose POC Glucose 317 H Urine Glucose (UA) Urine Blood Ur Leukocyte Esterase Discharge - Discharge Clinical Impression: Hyperglycemia due to type 1 diabetes mellitus UTI (urinary tract infection) Qualifiers: Urinary tract infection type: site unspecified Hematuria presence: with hematu georgie Qualified Code(s): N39.0 - Urinary tract infection, site not specified Condition: Stable Disposition: HOME, SELF-CARE Instructions: Cephalexin ([facility]), Family Physicians / Practices, Urinary Tract Infection ([facility]) Additional Instructions: Rest, fluids, medicines as directed. Please return here for any problems or any concerns. Check your sugar and work to keep it less than 200. Prescriptions: Cephalexin Monohydrate [Keflex 500 mg Capsule] 500 mg PO TID #30 capsule Ibuprofen [Motrin 600 mg Tablet] 600 mg PO TID #30 tablet Forms: Return to Work I personally performed the services described in the documentation, reviewed and edited the documentation which was dictated to the scribe in my presence, and it accurately records my words and actions.
[2020-02-14] MEDS ORDERED: KETOROLAC TROMETHAMINE INJ/PF 30 MG/1 ML SDV IV ONE (18:40)
[2020-02-14 20:40] VITALS: BP 122/77
== END 2020-02-14 20:40 | disposition home or self-care (01) ==
LOC: ER 15:18
DX: N39.0 Urinary tract infection, site not specified (principal); R31.9 Hematuria, unspecified; E10.65 Type 1 diabetes mellitus with hyperglycemia; R10.2 Pelvic and perineal pain; R11.0 Nausea; F12.10 Cannabis abuse, uncomplicated; N89.8 Other specified noninflammatory disorders of vagina; Z91.018 Allergy to other foods
CPT/HCPCS: 99284; 96375; 96365; 36415; 87086; 82962; 84703; 85025; 87088; 80053; 81001; 87491; 87591; 76830; 93976; J1885; J1815; J7030; J0696; 87186